=== PATIENT | female | born 1965 | race Caucasian/White ===

== ENCOUNTER 2023-01-12 15:38 | Outpatient (CLI) | payer BC, SELFPAY ==
--- NOTE | 2023-01-12 16:00 | MR_ITS ---
WS: [id number] MRI LUMBAR SPINE NONCONTRAST TECHNIQUE: Sagittal T1, T2 and STIR imaging. Axial T1 and T2 imaging. CLINICAL INFORMATION: M54.16 - Radiculopathy, lumbar region COMPARISON: None. FINDINGS: Mild lumbar curve. No acute compression. Disc bulging worse at L4-5. L1-L2: Slight retrolisthesis. Mild annular bulging. Spinal canal and foramen are patent. L2-L3: Mild annular bulging. Slight narrowing of the LEFT subarticular recess. Mild RIGHT and no sign ificant LEFT foraminal narrowing. Moderate facet arthropathy. L3-L4: Mild annular bulging with mild central canal stenosis. Moderate facet arthropathy. Slight narr owing of the RIGHT subarticular recess. Foramen are patent. L4-L5: Disc bulging with a RIGHT subarticular disc protrusion. This impinges the traversing RIGHT L5 nerve root in the subarticular recess. Moderate central canal stenosis. Moderate facet arthropathy wi th ligamentum flavum hypertrophy. Mild bilateral foraminal narrowing LEFT greater than RIGHT. L5-S1: Mild disc bulging with a shallow RIGHT subarticular protrusion. Impingement traversing RIGHT S 1 nerve root in the subarticular recess. Mild facet arthropathy. Mild RIGHT and no significant LEFT f oraminal narrowing. Visualized pelvic bony structures: Normal. Paravertebral soft tissues: Normal. Mild central canal stenosis in the cervical spine mill operator imaging at C3-C4 with small disc protrusions at C3 C4 C5-C6 and C6-C7. IMPRESSION: 1. RIGHT subarticular disc protrusion L4-5 impinges the traversing RIGHT L5 nerve root in the subart icular recess. Moderate central canal stenosis. Mild bilateral foraminal narrowing at this level. 2. Mild annular bulging L3-4 with mild central canal stenosis and narrowing of the RIGHT greater magdi n LEFT subarticular recess. 3. Disc bulging L5-S1 impinges the traversing RIGHT S1 nerve root in the subarticular recess. Mild R IGHT foraminal narrowing. 4. Moderate facet arthropathy L3-L5. 5. Mild central canal stenosis in the cervical spine on the mill operator imaging at C3-C4. This could be fu rther evaluated with cervical spine MRI.
== END 2023-01-12 15:39 | disposition home or self-care (01) ==
PROVIDERS: Family Provider Family Medicine; PCP Family Medicine; Visit Provider Anesthesiology Pain Medicine
DX: M47.26 Other spondylosis with radiculopathy, lumbar region (principal); M51.26 Other intervertebral disc displacement, lumbar region; M51.37 Other intervertebral disc degeneration, lumbosacral region; M48.07 Spinal stenosis, lumbosacral region; M48.02 Spinal stenosis, cervical region
CPT/HCPCS: 72148